=== PATIENT | female | born 1965 | race Caucasian/White ===

== ENCOUNTER 2018-10-03 10:18 | Emergency (ER) | payer OTHER ==
--- NOTE | 2018-10-03 10:57 | EDPHYS ---
Physician Documentation [facility] Name: Renea Stratton Age: 52 yrs Sex: Female : 1965 Arrival Date: 10/03/2018 Time: 10:20 Bed 10 Private MD: ED Physician Rishabh Carlos HPI: 10/03 10:36 This 52 yrs old Female presents to ER via Ambulatory with complaints of Ear jmm Pain. 10:36 The patient presents with pain, swelling. Onset: The symptoms/episode began/occurred jmm gradually, 2 day(s) ago. Modifying factors: The symptoms are alleviated by nothing, the symptoms are aggravated by pulling on ears, touching. Associated signs and symptoms: Pertinent negatives: fever. This is a 52 year old female with no chronic medical conditions that presents to the ED with complaints of left ear pain beginning 2 days ago. Patient prescribed augmentin with no relief and increased swelling. Patient states the ear has had drainage. Denies fever. . 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 - Social history:: Smoking status: Patient/guardian denies using tobacco. - Ebola Screening: : No symptoms or risks identified at this time. ROS: 10:36 Constitutional: Negative for fever, chills, and weight loss. jmm 10:36 Cardiovascular: Negative for chest pain, palpitations, and edema, Respiratory: Negative for shortness of breath, cough, wheezing, and pleuritic chest pain, Abdomen/GI: Negative for abdominal pain, nausea, vomiting, diarrhea, and constipation. 10:36 ENT: Positive for ear pain. 10:36 All other systems are negative. Exam: 10:36 Neck: Trachea midline, Supple Chest/axilla: Normal chest wall appearance and motion. jmm Cardiovascular: Regular rate and rhythm. No edema appreciated Respiratory: Normal respirations, no respiratory distress appreciated Abdomen/GI: Non distended, soft Back: Normal ROM Skin: General appearance color normal MS/ Extremity: Moves all extremities, no obvious deformities appreciated, no edema noted to the lower extremities Neuro: Awake and alert, normal gait Psych: Behavior is normal, Mood is normal, Patient is cooperative and pleasant 10:36 Constitutional: The patient appears in no acute distress, alert, awake. 10:36 Head/face: Noted is swelling, that is mild, of the left ear. 10:36 ENT: Ear canal(s): purulent discharge, that is moderate, in the left canal, swelling. 10:36 ENT: no mastoid tenderness, anterior auricular lymphadenopathy appreciated. Vital Signs: 10:32 BP 163 / 73; Pulse 87; Resp 18 S; Temp 98.4(TE); Pulse Ox 99% on R/A; Weight 108.86 kg aa5 (R); Height 5 ft. 7 in. (170.18 cm) (R); Pain 6/10; 10:32 Body Mass Index 37.59 (108.86 kg, 170.18 cm) aa5 MDM: 10:36 Patient medically screened. [facility] 10:41 Data reviewed: vital signs, nurses notes. Counseling: I had a detailed discussion with mirella the patient and/or guardian regarding: the historical points, exam findings, and any diagnostic results supporting the discharge/admit diagnosis, the need for outpatient follow up, to return to the emergency department if symptoms worsen or persist or if there are any questions or concerns that arise at home. ED course: No mastoid tenderness appreciated. PE appears consistent with OE. Patient is advised to follow up with ENT and otherwise given strict return precautions. patient understood and agrees with the plan of care. . Administered Medications: No medications were administered Disposition: 10/04 09:45 Co-signature as Attending Physician, Rishabh Carlos MD I agree with the assessment and [facility] plan of care. Disposition: 10/03/18 10:44 Discharged to Home. Impression: Otitis externa. - Condition is Stable. - Discharge Instructions: Otitis Externa. - Prescriptions for Tylenol- Codeine #3 300-30 mg Oral Tablet - take 1 tablet by ORAL route every 6 hours As needed; 20 tablet. Ciprodex 0.3- 0.1 % Otic Drops, Suspension - instill 4 drop by OTIC route every 12 hours for 7 days , for ears ONLY; 1 Container. - Medication Reconciliation Form, Thank You Letter, Antibiotic Education, Prescription Opioid Use form. - Follow up: Fabiola Orta MD; When: 2 - 3 days; Reason: Recheck today's complaints, Continuance of care, Re-evaluation by your physician. Signatures: Rishabh Carlos MD MD cha Mickail, Joel, PA PA jmm Calderon, Audri, RN RN aa5 Corrections: (The following items were deleted from the chart) 10/03 10:51 10:44 10/03/2018 10:44 Discharged to Home. Impression: Otitis externa. Condition is aa5 Stable. Forms are Medication Reconciliation Form, Thank You Letter, Antibiotic Education, Prescription Opioid Use. Follow up: Fabiola Orta; When: 2 - 3 days; Reason: Recheck today's complaints, Continuance of care, Re-evaluation by your physician. mirella
--- NOTE | 2018-10-03 10:57 | ER ---
Nurse's Notes [facility] Name: Renea Stratton Age: 52 yrs Sex: Female : 1965 Arrival Date: 10/03/2018 Time: 10:20 Bed 10 Private MD: Diagnosis: Otitis externa Presentation: 10/03 10:29 Presenting complaint: Patient states: "I've had ear pain since Thursday and I called the [facility] and they put me on Augmentin but the pain is worse, the swelling is worse, and the drainage is worse". Transition of care: patient was not received from another setting of care. Onset of symptoms was September 2018. Risk Assessment: Do you want to hurt yourself or someone else? Patient reports no desire to harm self or others. Initial Sepsis Screen: Does the patient meet any 2 criteria? No. Patient's initial sepsis screen is negative. Does the patient have a suspected source of infection? No. Patient's initial sepsis screen is negative. Care prior to arrival: None. 10:29 Method Of Arrival: Ambulatory aa 10:29 Acuity: GARIMA 4 aa5 Triage Assessment: 10:29 General: Appears comfortable, Behavior is calm, cooperative. 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 - Social history:: Smoking status: Patient/guardian denies using tobacco. - Ebola Screening: : No symptoms or risks identified at this time. Screenin:30 Abuse screen: Denies threats or abuse. Nutritional screening: No deficits noted. aa5 Tuberculosis screening: No symptoms or risk factors identified. Fall Risk None identified. Assessment: 10:30 General: Appears comfortable, Behavior is calm, cooperative. Pain: Complains of pain in aa5 left ear. Neuro: Level of Consciousness is awake, alert, obeys commands, Oriented to person, place, time, situation. Cardiovascular: Patient's skin is warm and dry. Respiratory: Airway is patent Respiratory effort is even, unlabored, Respiratory pattern is regular, symmetrical. GI: No signs and/or symptoms were reported involving the gastrointestinal system. : No signs and/or symptoms were reported regarding the genitourinary system. EENT: Reports pain in left ear since Swelling noted to outer ear. Derm: Skin is pink, warm \\T\\ dry. Musculoskeletal: Range of motion: intact in all extremities. Vital Signs: 10:32 BP 163 / 73; Pulse 87; Resp 18 S; Temp 98.4(TE); Pulse Ox 99% on R/A; Weight 108.86 kg aa5 (R); Height 5 ft. 7 in. (170.18 cm) (R); Pain 6/10; 10:32 Body Mass Index 37.59 (108.86 kg, 170.18 cm) aa5 ED Course: 10:20 Patient arrived in ED. mr 10:29 Arm band placed on. aa5 10:29 Patient has correct armband on for positive identification. aa5 10:31 Triage completed. aa5 10:33 Emily Martin, DENNISE is Primary Nurse. aa5 10:36 Darci Carson PA is PHCP. jm 10:36 Rishabh Carlos MD is Attending Physician. [facility] 10:44 Fabiola Orta MD is Referral Physician. [facility] 10:48 No provider procedures requiring assistance completed. Patient did not have IV access aa5 during this emergency room visit. Administered Medications: No medications were administered Outcome: 10:44 Discharge ordered by . jm 10:48 Discharged to home ambulatory. aa5 10:48 Condition: stable 10:48 Discharge instructions given to patient, Instructed on discharge instructions, follow up and referral plans. medication usage, Demonstrated understanding of instructions, follow-up care, medications, Prescriptions given X 2, Pt also instructed to continue Augmentin per TERRIE 10:51 Patient left the ED. aa5 Signatures: Darci Carson PA PA jmm CostelloBecca mr Emily Martin, RN RN aa5 Corrections: (The following items were deleted from the chart) :33 10:29 Acuity: GARIMA 5 aa5 aa5
== END 2018-10-03 10:51 | disposition home or self-care (01) ==
LOC: ER 10:18
DX: H60.92 Unspecified otitis externa, left ear (principal)
CPT/HCPCS: 99282